=== PATIENT | male | born 1965 | race Caucasian/White ===

== ENCOUNTER 2024-01-04 10:42 | Inpatient (IN) | payer BC, OTHER ==
[~2024-01-04] VITALS: Ht 177.8 cm; Wt 118.1 kg
[2024-01-04 10:45] VITALS: TEMP 98.4
[2024-01-04 11:12] LABS: HEMOGLOBIN 16.4 g/dL (14.0-18.0); MEAN CORPUSCULAR HEMOGLOBIN 32.1 pg (28-32); MEAN CORPUSCULAR HGB CONC 33.5 g/dL (31-35); MEAN CORPUSCULAR VOLUME 95.9 fL (81-99); PLATELET COUNT 286 x10e3/uL (140-360); RED BLOOD COUNT 5.11 x10e6/uL (4.3-5.7); RED CELL DISTRIBUTION WIDTH 12.9 % (11.7-14.4); WHITE BLOOD COUNT 10.97 x10e3/uL (4.8-10.8)
[2024-01-04] MEDS: SODIUM CHLORIDE 0.9% 1000ML 1,000 ML IV ONE (11:12)
[2024-01-04 11:27] LABS: INR 0.99; PROTHROMBIN TIME 13.6 seconds (11.9-14.5)
[2024-01-04 11:28] LABS: PARTIAL THROMBOPLASTIN TIME 27.5 seconds (23.8-35.5)
[2024-01-04 11:35] LABS: ALBUMIN 3.9 g/dL (3.5-5.0); ANION GAP 14.4 mmol/L (8-16); BILIRUBIN,TOTAL 0.7 mg/dL (0.2-1.2); CREATININE, SERUM 1.27 mg/dL (0.72-1.25); TOTAL PROTEIN 7.7 g/dL (6.5-8.1)
[2024-01-04 11:49] LABS: POTASSIUM 5.4 mmol/L (3.5-5.1)
[2024-01-04] MEDS: ONDANSETRON HCL INJ 2MG/ML 2ML 2 MG/ML VIAL IV STA (11:50)
[2024-01-04] MEDS: FENTANYL CITRATE/PF 100MCG/2 ML INJ IV ONE (11:50)
[2024-01-04 11:57] LABS: BAND NEUTROPHILS % (MANUAL) 1 %; EOSINOPHILS % (MANUAL) 1 % (0-7); LYMPHOCYTES % (MANUAL) 20 % (19-48); MONOCYTES % (MANUAL) 5 % (3.4-9.0); NEUTROPHILS % (MANUAL) 65 % (40-74); REACTIVE LYMPHOCYTES 8
[2024-01-04 11:58] LABS: PLATELET ESTIMATE ADEQUATE; PLATELET MORPHOLOGY COMMENT NORMAL; RBC MORPHOLOGY COMMENT NORMAL
[2024-01-04] MEDS ORDERED: SODIUM CHLORIDE FLUSH 10 ML SYR INJ PRN (13:00)
[2024-01-04] MEDS: ONDANSETRON HCL INJ 2MG/ML 2ML 2 MG/ML VIAL IV PRN (15:36)
[2024-01-04] MEDS: Morphine 4mg INJECTION 4 MG/ML INJ IV PRN (15:36)
[2024-01-04 16:45] VITALS: PULSE 69; RESP 19
[2024-01-04 18:00] VITALS: BP 115/59; PULSE 69; RESP 18; TEMP 98.6; O2SAT 99
[2024-01-04] MEDS ORDERED: METOPROLOL TART25 MG PO (18:32)
[2024-01-04] MEDS ORDERED: BUSPIRONE HCL10 MG PO (18:32)
[2024-01-04] MEDS ORDERED: CRESTOR40 MG (18:32)
[2024-01-04] MEDS ORDERED: CLOPIDOGREL75 MG PO (18:32)
[2024-01-04] MEDS ORDERED: ZETIA10 MG PO (18:32)
[2024-01-04 19:27] VITALS: BP 115/59; PULSE 69; RESP 18; TEMP 98.6; O2SAT 99
[2024-01-04 20:00] VITALS: BP 115/59; PULSE 69; RESP 18; TEMP 98.6; O2SAT 99
[2024-01-04 20:45] VITALS: BP 118/71; PULSE 74; RESP 18; TEMP 98.1; O2SAT 97
[2024-01-05] VITALS (9 sets, daily range): BP systolic 111–129; BP diastolic 59–79; PULSE 65–83; RESP 17–20; TEMP 97.4–98.8; O2SAT 95–100
[2024-01-05] MEDS: LIDOCAINE 4% PATCH TP SCH (00:30)
[2024-01-05] MEDS: KETOROLAC TROMETHAMINE 30 MG/ML VIAL IV ONE (02:45)
[2024-01-05 05:28] LABS: BASOPHILS # (AUTO) 0.1 (0.0-0.1); BASOPHILS % 0.5 % (0.0-1.0); EOSINOPHILS # (AUTO) 0.2 (0.0-0.4); EOSINOPHILS % 1.5 % (0.0-6.0); HEMATOCRIT 42.1 % (38.2-49.6); LYMPHOCYTES # (AUTO) 2.7 (1.0-3.2); LYMPHOCYTES % 24.7 % (18.0-39.1); MEAN CORPUSCULAR HEMOGLOBIN 31.9 pg (28-32); MEAN CORPUSCULAR HGB CONC 33.3 g/dL (31-35); MEAN CORPUSCULAR VOLUME 95.9 fL (81-99); MONOCYTES # (AUTO) 1.2 (0.2-0.8); NEUTROPHILS # (AUTO) 6.8 (2.1-6.9); NEUTROPHILS % 61.9 % (38.7-80.0); PLATELET COUNT 243 x10e3/uL (140-360); RED BLOOD COUNT 4.39 x10e6/uL (4.3-5.7); RED CELL DISTRIBUTION WIDTH 13.1 % (11.7-14.4); WHITE BLOOD COUNT 10.92 x10e3/uL (4.8-10.8)
[2024-01-05 05:59] LABS: ALBUMIN 3.2 g/dL (3.5-5.0); BILIRUBIN,TOTAL 0.9 mg/dL (0.2-1.2); CALCIUM 8.8 mg/dL (8.4-10.2); CREATININE, SERUM 1.09 mg/dL (0.72-1.25); TOTAL PROTEIN 6.3 g/dL (6.5-8.1)
[2024-01-05] MEDS: CLOPIDOGREL BISULFATE 75 MG TAB PO SCH (15:00)
[2024-01-05] MEDS: METOPROLOL TARTRATE 25 MG TAB PO SCH (16:49)
[2024-01-05] MEDS: KETOROLAC TROMETHAMINE 30 MG/ML VIAL IV PRN (16:49)
[2024-01-05] MEDS: BUSPIRONE HCL 10 MG TABLET PO SCH (20:08)
[2024-01-06] VITALS (7 sets, daily range): BP systolic 109–133; BP diastolic 55–72; PULSE 60–78; RESP 18–20; TEMP 97.4–98.5; O2SAT 96–99
[2024-01-06] MEDS ORDERED: EZETIMIBE 10 MG TAB PO SCH (09:00)
[2024-01-06] MEDS ORDERED: CLOPIDOGREL BISULFATE 75 MG TAB PO SCH (09:00)
[2024-01-06] MEDS: CLOPIDOGREL BISULFATE 75 MG TAB PO SCH (16:52)
[2024-01-06] MEDS: EZETIMIBE 10 MG TAB PO SCH (16:52)
[2024-01-07] VITALS: BP 118/71; PULSE 65; RESP 18; TEMP 97.1; O2SAT 98
[2024-01-07 04:00] VITALS: BP 141/73; PULSE 65; RESP 18; TEMP 99.2; O2SAT 95
[2024-01-07 08:38] VITALS: BP 134/76; PULSE 71; RESP 18; TEMP 97.3; O2SAT 96
[2024-01-07 09:00] VITALS: BP 134/76; PULSE 71; RESP 18; TEMP 97.3; O2SAT 96
[2024-01-07 12:29] VITALS: BP 147/85; PULSE 62; RESP 20; TEMP 97.5; O2SAT 96
[2024-01-07 17:02] VITALS: BP 136/89; PULSE 73; RESP 20; TEMP 97.9; O2SAT 97
[2024-01-07] MEDS ORDERED: ONDANSETRON ODT4 MG PO (18:07)
[2024-01-07] MEDS: Morphine 2mg Syringe 2 MG/ML SYR IV ONE (18:26)
== END 2024-01-07 18:42 | disposition home or self-care (01) | DRG 552 ==
LOC: ER 10:46 → ERHOLD 12:52 → MED/SURG2 17:23 → OBSVTOIN 01-05 14:33
PROVIDERS: ADMIT Internal Medicine; ATTEND Internal Medicine
DX: S22.058A Other fracture of T5-T6 vertebra, initial encounter for closed fracture (principal); S22.068A Other fracture of T7-T8 thoracic vertebra, initial encounter for closed fracture; S22.078A Other fracture of T9-T10 vertebra, initial encounter for closed fracture; I10 Essential (primary) hypertension; I25.10 Atherosclerotic heart disease of native coronary artery without angina pectoris; M54.2 Cervicalgia; G47.00 Insomnia, unspecified; E78.5 Hyperlipidemia, unspecified; R11.0 Nausea; V80.010A Animal-rider injured by fall from or being thrown from horse in noncollision accident, initial encounter; Y92.017 Garden or yard in single-family (private) house as the place of occurrence of the external cause; Z79.02 Long term (current) use of antithrombotics/antiplatelets; I25.2 Old myocardial infarction
CPT/HCPCS: 36415; 70450; 71250; 72125; 72128; 72131; 80053; 85007; 85025; 85027; 85610; 85730; 99284; G0378; J1885; J2270; J2405; J7030